=== PATIENT | female | born 1965 | race Caucasian/White ===

== ENCOUNTER 2025-03-16 09:29 | Outpatient (CLI) | payer MEDICAID ==
--- NOTE | 2025-03-16 10:53 | RADIOLOGY REPORT ---
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 FINDINGS: No acute infarct or hemorrhage. No mass or midline shift. There are a few small foci of T2/FLAIR hyperintense signal in the periventricular and subcortical white matter, which are nonspecific, but may be seen with mild chronic small-vessel ischemic disease, migraine headaches, or other vascular phenomena. Ventricles and sulci are within normal limits. Basal cisterns are patent. Cerebellum, brainstem, and midline structures are within normal limits. Mild mucosal thickening of the paranasal sinuses. Orbits are grossly unremarkable. IMPRESSION: 1. No evidence of acute intracranial abnormality. 2. Small foci of T2/FLAIR hyperintense signal in the periventricular and subcortical white matter are nonspecific, but may be seen with mild chronic small-vessel ischemic disease, migraine headaches, or other vascular phenomena. Demyelinating disease would be less likely but not completely excluded in the appropriate clinical setting. Correlate with clinical findings. 3. Additional nonacute findings as detailed above.
== END 2025-03-16 23:59 | disposition home or self-care (01) ==
LOC: MRI02 09:29
PROVIDERS: ATTEND Neuromusculoskeletal Medicine & OMM
DX: G43.719 Chronic migraine without aura, intractable, without status migrainosus (principal); J34.89 Other specified disorders of nose and nasal sinuses
CPT/HCPCS: 70551